=== PATIENT | female | born 1980 | race Caucasian/White ===

== ENCOUNTER → 2017-01-30 | Outpatient (CLI) | payer OTHER ==
[~2017-01-30] MED LIST: AZIT250T PO
== END | disposition home or self-care (01) ==
LOC: C.LABBFT 11:05
PROVIDERS: ATTEND Nurse Practitioner
DX: R39.9 Unspecified symptoms and signs involving the genitourinary system (principal)

== ENCOUNTER → 2017-03-26 | Outpatient (CLI) | payer OTHER ==
[2017-03-29 15:32] LABS: NICOTINE URINE 326 ng/mL
== END | disposition home or self-care (01) ==
LOC: C.LABBFT 08:12
PROVIDERS: ATTEND Nurse Practitioner
DX: Z00.00 Encounter for general adult medical examination without abnormal findings (principal); Z87.891 Personal history of nicotine dependence

== ENCOUNTER 2024-10-09 09:09 | Observation (INO) ==
[2024-10-09 10:24] LABS: Basophils # (auto) 0.08 K/uL (0.00-0.20); Eosinophils % (auto) 4.8 %; Hematocrit (blood only) 41.9 % (37.0-47.0); Immature Granulocytes # (auto) 0.04 K/uL (0.01-0.20); Immature Granulocytes % (auto) 0.5 %; Lymphocytes % (auto) 12.1 %; Mean Corpuscular Hemoglobin 29.7 pg (25.0-34.0); Mean Corpuscular Hgb Conc 33.4 g/dL (32.0-36.0); Mean Platelet Volume 11.6 fL (9.4-12.4); Monocytes % (auto) 9.7 %; Neutrophils # (auto) 5.97 K/uL (1.40-6.50); Neutrophils % (auto) 71.9 %; Platelet Count 229 K/uL (130-400); RDW Coefficient of Variation 12.9 % (11.5-14.5); RDW Standard Deviation 42.1 fL (36.4-46.3); Red Blood Count 4.71 M/uL (4.20-5.40); White Blood Count 8.29 K/ul (4.8-10.8)
[2024-10-09 10:43] LABS: Albumin Level 4.7 gm/dl (3.4-5.0); Anion Gap 5 (3-11); Bilirubin,Total 0.3 mg/dl (0.2-1.0); Calcium 9.2 mg/dl (8.6-10.3); Carbon Dioxide 29 mmol/L (21-32); Chloride 103 mmol/L (98-107); Potassium 3.4 mmol/L (3.5-5.1); Sodium 137 mmol/L (136-145)
[2024-10-09 10:49] LABS: Alanine Aminotransferase 13 U/L (7-52); Albumin Globulin Ratio 1.7 (0.9-2); Alkaline Phosphatase 47 U/L (34-104); Aspartate Aminotransferase 20 U/L (13-39); BUN Creatinine Ratio 22.1 (10-20); Blood Urea Nitrogen 17 mg/dl (6-23); C Reactive Protein < 0.50 mg/dl (0-0.5); Creatinine Clr Calc Pharmacy 91.5 ml/min; Globulin 2.7 gm/dl (2.5-4.0); Glucose 77 mg/dl (70-99(Fasting)); Total Protein 7.4 gm/dl (6.0-8.3)
[2024-10-09] MEDS: OPTIRAY 320 100ml IV ONE (11:10)
--- NOTE | 2024-10-09 11:29 | CT Scan Report ---
CT OF THE HEAD WITHOUT CONTRAST CLINICAL HISTORY: headache, sinus pressure COMPARISON STUDY: Head CT July 16, 2010. TECHNIQUE: Helical axial images of the head were obtained without IV contrast. Automated exposure con trol was utilized for the study. A dose lowering technique was utilized adhering to the principles o f ALARA. FINDINGS: No acute intracranial hemorrhage, midline shift or mass effect is present. The ventricular system is unremarkable. The basal cisterns are patent. No extra-axial collections are present. There are no findings to suggest acute dural sinus thrombosis or acute territorial infarct. There are no ca lvarial fractures. The right sphenoid sinus is opacified and likely contains inspissated secretions. There is a suspected mucous retention cyst within the left maxillary sinus. There is mild ethmoid sin us mucosal thickening. IMPRESSION: 1. No acute intracranial findings. 2. Opacified right sphenoid sinus which likely contains inspissated secretions. Left maxillary sinus mucous retention cyst and mild ethmoid sinus mucosal thickening. ACT 112: Negative or not required by law. Electronically signed by: Al Valencia M.D. 10/09/2024 11:28 AM
--- NOTE | 2024-10-09 11:56 | CT Scan Report ---
CT soft tissue neck w con CLINICAL HISTORY: sore throat, lymph node swelling, inflammation COMPARISON STUDY: None FINDINGS: There is spray artifact from metallic dental hardware. The parotid glands and submandibular glands appear mildly edematous with adjacent minimal inflammation. Thyroid gland is unremarkable. Th ere is moderate prominence of the tonsillar pillars bilaterally with mild narrowing of the aerodigest oleg tract at the level, suggesting tonsillitis. No peritonsillar abscess seen. There is swallowing ar tifact. Otherwise the visualized upper airway is widely patent and symmetric. There is mild cervical adenopathy with largest lymph node is a right submandibular node measuring 1.6 cm greatest dimension. There is complete opacification of the right maxillary sinus with occlusion of the right maxillary a ntrum and prominent mucosal thickening at the left maxillary sinus. No mastoid effusion. There is deg enerative disc disease at C5-6. IMPRESSION: 1. Findings suggestive of tonsillitis without peritonsillar abscess. 2. Mild edema/inflammation at the parotid and submandibular glands and mild cervical adenopathy. Thes e findings could be reactive due to tonsillitis, can also be seen in the setting of viral infection a nd Sjogren's syndrome. 3. Chronic maxillary sinusitis. ACT 112: Negative or not required by law. Electronically signed by: Graeme Hood M.D. 10/09/2024 11:53 AM
--- NOTE | 2024-10-09 12:24 | Emergency Department Note ---
ED Provider Note History of Present Illness Chief Complaint: Swelling/Edema to Extremity Stated Complaint: FACIAL SWELLING Time Seen by Provider: 10/09/24 10:16 Source: patient Mode of arrival: ambulatory Limitations: no limitations Patient is a 44-year-old female who presents to the emergency department for continued facial and neck swelling. Patient was seen here in the ED 2 days ago by myself for what she suspected was an allergic reaction. Home Medications Medication Instructions Recorded Confirmed Type multivitamin with minerals 1 tab PO DAILY 09/02/20 10/09/24 History (Hair,Skin and Nails tablet) valacyclovir 1 gram tablet 2,000 mg (2 x 1 gram) PO BID PRN 04/18/23 10/09/24 Rx oral ulcer 1 day #30 tabs epinephrine 0.3 mg/0.3 mL 0.3 mg (0.3 mL) IM Q4H PRN 10/07/24 10/09/24 Rx injection, auto-injector (EpiPen) anaphylaxis #2 ea amoxicillin 875 mg-potassium 1 tab PO BID 7 days #14 tabs 10/09/24 Rx clavulanate 125 mg tablet Allergies Allergy/AdvReac Type Severity Reaction Status Date / Time mold Allergy Intermediate rash Verified 10/08/24 14:00 house dust mite Allergy Mild nasal Verified 10/08/24 14:00 drainage, watering eye pollen extracts Allergy Mild nasal Verified 10/08/24 14:00 drainage, watering eyes cat dander AdvReac Unknown Verified 10/08/24 14:00 cats Allergy Unknown Uncoded 10/08/24 14:00 Past Med/Surg History Problem List Lorraine Dobson infection Influenza A Acute tonsillitis (Acute) Sinusitis, acute (Acute) Lymphadenopathy Allergic reaction (Acute) Tobacco use (Chronic) Allergic rhinitis (Acute) Medical History Bilirubinuria Urine discoloration Oral ulcer ASCUS of cervix with negative high risk HPV (08/2022) per [facility] repeat 09/16 Abnormal uterine bleeding (AUB) Weight gain Fatigue Impaired fasting glucose Overweight (BMI 25.0-29.9) Volvulus of colon Hyperlipidemia GERD (gastroesophageal reflux disease) COVID-19 x 2019, 2020 Irregular periods Daytime hypersomnolence Asthma Surgical History H/O right hemicolectomy (07/2014) [facility], Dr. Santos, performed for cecal volvulus S/P appendectomy Hx of cholecystectomy H/O abdominal surgery 11 inches of bowel removed H/O laparoscopy infertility w/u - dx with endometriosis History of hysteroscopy Family History Aunt Breast cancer Father COPD (chronic obstructive pulmonary disease) Other Heart disease Lung disease Denies family history of Ovarian cancer Prostate cancer Colorectal cancer Social History Smoking Status: Former smoker Tobacco Type: E-cigarettes / Vaping Age Started Using Tobacco: 16; Age Quit Using Tobacco: 39; packs per day: 0; Second Hand Exposure: No; Do You Dip or Chew Tobacco: No; Tobacco Cessation Education Requested by Patient: No Hx Alcohol Use: Yes Alcohol type: beer and wine Hx Substance Use: No Preferred Language: Telugu Communication Ability: Effective Visual Impairment: No Limitations Hearing Ability: Normal Lim[employer]ine [employer]ste[employer] Required: No Beliefs That Will Affect Care: None marital status: Single Current Living Situation: Family current occupational status: employed current occupation: [employer] How many Children do You have: 3 Other Information That Helps Us Care for You: No Feels Safe at Home: Yes Safety Concerns: Feels Safe At This Time Childhood Exposure to Second-Hand Smoke: Yes Diet: regular caffeine: Yes during the past year weight has: remained stable Dental Care, Regularly: Yes Physical Activity Frequency: 5-6 Times per Week Seatbelt Use: always Sunscreen Use: Yes Assistive Devices: Glasses Physical Exam Vital Signs Vital Signs - 24 hr 10/09/24 19:50 10/09/24 20:00 10/09/24 20:40 Temperature Temperature Source Pulse Rate 73 Pulse Rate [Right Finger] 76 60 Respiratory Rate 18 16 18 Respiratory Effort / Characteristics Non-Labored Spontaneous Non-Labored Respiratory Depth Respiratory Pattern Blood Pressure 98/65 L Blood Pressure [Left Arm] 112/77 122/72 Blood Pressure Mean [Left Arm] 88 88 Blood Pressure Position [Left Arm] Pulse Oximetry 96 96 96 Oxygen Delivery Method Room Air Room Air Room Air EWS Level of Consciousness - Last Result EWS Temperature - Last Result EWS Respiratory Rate - Last Result EWS Oxygen Saturation - Last Result EWS Oxygen in Use - Last Result EWS Score EWS Clinical Risk 10/09/24 21:05 10/10/24 01:07 10/10/24 08:27 Temperature 36.4 C L 36.7 C Temperature Source Oral Oral Pulse Rate Pulse Rate [Right Finger] 65 64 Respiratory Rate 16 16 Respiratory Effort / Characteristics Non-Labored Spontaneous Respiratory Depth Normal Normal Respiratory Pattern Regular Blood Pressure Blood Pressure [Left Arm] 102/67 112/74 Blood Pressure Mean [Left Arm] 78 86 Blood Pressure Position [Left Arm] Semi-fowlers Semi-fowlers Pulse Oximetry 96 96 Oxygen Delivery Method Room Air Room Air EWS Level of Consciousness - Last Result Spontaneously Alert EWS Temperature - Last Result 36.4 EWS Respiratory Rate - Last Result 16 EWS Oxygen Saturation - Last Result 96 EWS Oxygen in Use - Last Result No EWS Score 1 EWS Clinical Risk Low Risk 10/10/24 10:04 Temperature Temperature Source Pulse Rate Pulse Rate [Right Finger] Respiratory Rate Respiratory Effort / Characteristics Respiratory Depth Respiratory Pattern Blood Pressure Blood Pressure [Left Arm] Blood Pressure Mean [Left Arm] Blood Pressure Position [Left Arm] Pulse Oximetry Oxygen Delivery Method EWS Level of Consciousness - Last Result Spontaneously Alert EWS Temperature - Last Result 36.7 EWS Respiratory Rate - Last Result 16 EWS Oxygen Saturation - Last Result 96 EWS Oxygen in Use - Last Result No EWS Score 0 EWS Clinical Risk Low Risk VITAL SIGNS - Vital signs and nursing notes were reviewed. GENERAL -44-year-old female appearing their stated age, who is in no acute distress. Communicates well with provider and answers questions appropriately. Patient's is at bedside. HEAD - Normocephalic, Atraumatic. No Arriola's Sign or Raccoon's Eyes. No depressed skull fractures palpable. Patient has swelling noted to her face, her bilateral eyelids are puffy as well as swelling around her chin and neck. EYES - PERRL with EOMI bilaterally. Sclera anicteric. Conjunctiva pink and moist with no injection noted. EARS - No deformities of external structures noted on gross examination bilaterally. NOSE - Midline and without cyanosis. No epistaxis or purulent drainage noted. MOUTH/OROPHARYNX - Without perioral cyanosis. Buccal mucosa pink and moist and without leukoplakia. Patient's airway is patent, no noted erythema or edema within the airway. NECK - Neck with FROM. Moderate lymphadenopathy noted. LUNGS - Chest wall symmetric without accessory muscle use, intercostals retractions, or central cyanosis. Normal vesicular breath sounds CTA B/L. No wheezes, rales, or rhonchi appreciated. CARDIAC - RRR with S1/S2. No murmur, rubs, or gallops appreciated. EXTREMITIES - No edema present. +5/5 strength noted in UE/LE bilaterally. NEUROLOGIC -Sensory intact to light touch throughout. PSYCH - A&Ox3 and cooperates fully with examiner. Pt is very pleasant and interacts well with examiner Course Administered Medications Amoxicillin/Clavulanate Potassium (Amoxicillin/Clavulanate 875 Mg Tab) 1 tab PO BIDM [facility]; Protocol Stop: 10/17/24 16:59 Last Admin: 10/10/24 17:36 Dose: 1 tab Documented By: ANGE Cetirizine HCl (Cetirizine Hcl 10 Mg Tablet) 10 mg PO QAM [facility] Stop: 11/09/24 08:59 Last Admin: 10/10/24 08:43 Dose: 10 mg Documented By: ANGE Methylprednisolone 40 mg/ (Syringe) 0.64 mls @ 1.5 mls/min IV Q8H NICOLE Stop: 11/09/24 09:59 Last Admin: 10/10/24 17:36 Dose: 1.5 mls/min Documented By: Admin: 10/10/24 10:41 Dose: 1.5 mls/min Documented By: ANGE Oseltamivir Phosphate (Oseltamivir Phosphate 75 Mg Cap) 75 mg PO BID NICOLE Stop: 10/14/24 20:59 Last Admin: 10/10/24 08:43 Dose: 75 mg Documented By: Admin: 10/09/24 21:59 Dose: 75 mg Documented By: RICHIE Discontinued Medications Amoxicillin/Clavulanate Potassium (Amoxicillin/Clavulanate Susp 400/57 Mg 5 Ml Btl) 880 mg PO BIDM [facility]; Protocol Stop: 10/19/24 17:14 Last Admin: 10/10/24 10:41 Dose: 880 mg Documented By: Admin: 10/09/24 18:01 Dose: 880 mg Documented By: BREANNA Cetirizine HCl (Cetirizine Hcl 10 Mg Tablet) 10 mg PO NOW ONE Stop: 10/09/24 17:54 Last Admin: 10/09/24 21:59 Dose: 10 mg Documented By: RICHIE Dexamethasone Sodium Phosphate (DexamethasonePf 10 Mg/Ml Vial) 10 mg IM NOW ONE Stop: 10/09/24 14:37 Last Admin: 10/09/24 14:56 Dose: Not Given Documented By: BREANNA Diphenhydramine HCl (Diphenhydramine 50 Mg/Ml Vial) 25 mg IV NOW STA Stop: 10/09/24 14:37 Last Admin: 10/09/24 14:49 Dose: 25 mg Documented By: BREANNA Diphenhydramine HCl (Diphenhydramine 50 Mg/Ml Vial) 50 mg IV NOW STA Stop: 10/09/24 17:42 Last Admin: 10/09/24 18:03 Dose: 50 mg Documented By: BREANNA Famotidine (Famotidine 20mg/5ml Iv Push) Confirm Administered Dose 20 mg IV .STK-MED ONE Stop: 10/09/24 14:51 Last Admin: 10/09/24 15:06 Dose: Not Given Documented By: BREANNA Ceftriaxone Sodium (Rocephin) 2,000 mg in 50 mls @ 100 mls/hr IV NOW STA Stop: 10/09/24 13:34 Last Infusion: 10/09/24 14:07 Dose: Infused Documented By: Admin: 10/09/24 13:09 Dose: 100 mls/hr Documented By: BREANNA Famotidine (Pepcid 20mg Iv Push) 20 mg in 5 mls @ 2.5 mls/min IV NOW STA Stop: 10/09/24 14:48 Last Admin: 10/09/24 14:54 Dose: 2.5 mls/min Documented By: BREANNA Potassium Chloride/Sodium Chloride (Normal Saline W/20 Meq Kcl) 20 meq in 1,000 mls @ 100 mls/hr IV .Q10H NICOLE Stop: 10/10/24 07:59 Last Infusion: 10/10/24 14:14 Dose: Infused Documented By: Admin: 10/10/24 04:18 Dose: 100 mls/hr Documented By: Infusion: 10/10/24 04:03 Dose: Infused Documented By: Admin: 10/09/24 18:03 Dose: 100 mls/hr Documented By: BREANNA Sodium Chloride (Nss) 500 mls @ 999 mls/hr IV .Q31M ONE Stop: 10/09/24 17:30 Last Infusion: 10/09/24 19:43 Dose: Infused Documented By: Admin: 10/09/24 18:17 Dose: 999 mls/hr Documented By: BREANNA Ioversol (Optiray 320 100ml) 94 ml IV ONCE ONE Stop: 10/09/24 11:11 Last Admin: 10/09/24 11:10 Dose: 94 ml Documented By: ALYSHA Methylprednisolone (Methylprednisolone 125 Mg/2 Ml Vial) Confirm Administered Dose 125 mg .ROUTE .STK-MED ONE Stop: 10/09/24 14:44 Last Admin: 10/09/24 15:06 Dose: Not Given Documented By: BREANNA Methylprednisolone (Methylprednisolone 125 Mg/2 Ml Vial) 125 mg IV NOW STA Stop: 10/09/24 14:48 Last Admin: 10/09/24 14:54 Dose: 125 mg Documented By: BREANNA Oseltamivir Phosphate (Oseltamivir Phosphate 6 Mg/Ml Susp) 75 mg PO NOW STA Stop: 10/09/24 16:56 Last Admin: 10/09/24 18:04 Dose: 75 mg Documented By: BREANNA Potassium Chloride (Potassium Chloride Crtab 20 Meq Tabcr) 20 meq PO NOW STA Stop: 10/09/24 16:51 Last Admin: 10/09/24 18:02 Dose: 20 meq Documented By: BREANNA Medical Decision Making Differential Diagnosis Allergic reaction, angioedema, viral reaction, cellulitis, among others Medical Records Attestation: I reviewed the patient's medical records. Home Medications was personally reviewed by me Laboratory Data Attestation: I reviewed the patient's lab results. 10/10/24 06:30 10/10/24 06:30 Lab Results 10/09/24 10/09/24 10/09/24 Range/Units 09:45 15:10 18:32 WBC 8.29 (4.8-10.8) K/ul RBC 4.71 (4.20-5.40) M/uL Hgb 14.0 (12.0-16.0) g/dl Hct 41.9 (37.0-47.0) % MCV 89.0 (80.0-100.0) fL MCH 29.7 (25.0-34.0) pg MCHC 33.4 (32.0-36.0) g/dL RDW Std Deviation 42.1 (36.4-46.3) fL RDW Coeff of Trae 12.9 (11.5-14.5) % Plt Count 229 (130-400) K/uL MPV 11.6 (9.4-12.4) fL Immature Gran % (Auto) 0.5 % Neut % (Auto) 71.9 % Lymph % (Auto) 12.1 % Victoria % (Auto) 9.7 % Eos % (Auto) 4.8 % Baso % (Auto) 1.0 % Neut # (Auto) 5.97 (1.40-6.50) K/uL Lymph # (Auto) 1.00 L (1.20-3.40) K/uL Victoria # (Auto) 0.80 H (0.11-0.59) K/uL Eos # (Auto) 0.40 (0.00-0.50) K/uL Baso # (Auto) 0.08 (0.00-0.20) K/uL Immature Gran # (Auto) 0.04 (0.01-0.20) K/uL ESR 12 (0-20) mm/hr PT (9.0-12.0) Seconds INR (0.9-1.1) Sodium 137 (136-145) mmol/L Potassium 3.4 L (3.5-5.1) mmol/L Chloride 103 (98-107) mmol/L Carbon Dioxide 29 (21-32) mmol/L Anion Gap 5 (3-11) BUN 17 (6-23) mg/dl Creatinine 0.77 (0.6-1.2) mg/dl Est Cr Clr Drug Dosing 91.5 ml/min eGFR 96.88 BUN/Creatinine Ratio 22.1 H (10-20) Glucose 77 (70-99(Fasting)) mg/dl Calcium 9.2 (8.6-10.3) mg/dl Magnesium (1.7-2.4) mg/dl Total Bilirubin 0.3 (0.2-1.0) mg/dl AST 20 (13-39) U/L ALT 13 (7-52) U/L Alkaline Phosphatase 47 (34-104) U/L C-Reactive Protein < 0.50 (0-0.5) mg/dl Total Protein 7.4 (6.0-8.3) gm/dl Albumin 4.7 (3.4-5.0) gm/dl Globulin 2.7 (2.5-4.0) gm/dl Albumin/Globulin Ratio 1.7 (0.9-2) Adenovirus (PCR) Not Detected (NotDetected) B. pertussis DNA (PCR) Not Detected (NotDetected) B.parapertussis DNA PCR Not Detected (NotDetected) C. pneumoniae DNA (PCR) Not Detected (NotDetected) Coronavirus OC43 (PCR) Not Detected (NotDetected) Coronavirus HKU1 (PCR) Not Detected (NotDetected) Coronavirus 229E (PCR) Not Detected (NotDetected) SARS-CoV-2 (PCR) Not Detected (NotDetected) Coronavirus NL63 (PCR) Not Detected (NotDetected) EBV Capsid Ag IgG Ab Positive EBV Caps Ag IgG Sig Str > 750.0 (< 18.0) U/mL EBV Capsid Ag IgM Ab Negative EBV Caps Ag IgM Sig Str 11.7 (< 36.0) U/mL EBV Early Antigen IgG Positive A (Negative) EBV EA Signal Strength 79.8 (< 9.0) U/mL EBV Nuclear Antigen Ab Positive EBV Nucl Ag IgG Sig Str 374.0 (< 18.0) U/mL EBV Interpretation See Comment Monoscreen Negative (Negative) Human Metapneumovir PCR Not Detected (NotDetected) Influenza A (H3) PCR DETECTED A (NotDetected) Influenza Type B (PCR) Not Detected (NotDetected) M. pneumoniae (PCR) Not Detected (NotDetected) Parainfluenza 1 (PCR) Not Detected (NotDetected) Parainfluenza 2 (PCR) Not Detected (NotDetected) Parainfluenza 3 (PCR) Not Detected (NotDetected) Parainfluenza 4 (PCR) Not Detected (NotDetected) RSV (PCR) Not Detected (NotDetected) Entero/Rhino (PCR) Not Detected (NotDetected) Group A Strep (PCR) NOT DETECTED (NotDetected) 10/10/24 Range/Units 06:30 WBC 7.07 (4.8-10.8) K/ul RBC 4.33 (4.20-5.40) M/uL Hgb 13.0 (12.0-16.0) g/dl Hct 38.4 (37.0-47.0) % MCV 88.7 (80.0-100.0) fL MCH 30.0 (25.0-34.0) pg MCHC 33.9 (32.0-36.0) g/dL RDW Std Deviation 42.3 (36.4-46.3) fL RDW Coeff of Trae 12.8 (11.5-14.5) % Plt Count 211 (130-400) K/uL MPV 11.6 (9.4-12.4) fL Immature Gran % (Auto) 0.4 % Neut % (Auto) 79.0 % Lymph % (Auto) 11.5 % Victoria % (Auto) 8.9 % Eos % (Auto) 0.1 % Baso % (Auto) 0.1 % Neut # (Auto) 5.58 (1.40-6.50) K/uL Lymph # (Auto) 0.81 L (1.20-3.40) K/uL Victoria # (Auto) 0.63 H (0.11-0.59) K/uL Eos # (Auto) 0.01 (0.00-0.50) K/uL Baso # (Auto) 0.01 (0.00-0.20) K/uL Immature Gran # (Auto) 0.03 (0.01-0.20) K/uL ESR (0-20) mm/hr PT 10.9 (9.0-12.0) Seconds INR 1.0 (0.9-1.1) Sodium 137 (136-145) mmol/L Potassium 4.2 D (3.5-5.1) mmol/L Chloride 108 H (98-107) mmol/L Carbon Dioxide 25 (21-32) mmol/L Anion Gap 4 (3-11) BUN 9 (6-23) mg/dl Creatinine 0.62 (0.6-1.2) mg/dl Est Cr Clr Drug Dosing 109.3 ml/min eGFR 111.85 BUN/Creatinine Ratio 14.5 (10-20) Glucose 79 (70-99(Fasting)) mg/dl Calcium 8.3 L (8.6-10.3) mg/dl Magnesium 1.9 (1.7-2.4) mg/dl Total Bilirubin 0.3 (0.2-1.0) mg/dl AST 15 (13-39) U/L ALT 11 (7-52) U/L Alkaline Phosphatase 47 (34-104) U/L C-Reactive Protein (0-0.5) mg/dl Total Protein 6.4 (6.0-8.3) gm/dl Albumin 4.0 (3.4-5.0) gm/dl Globulin 2.4 L (2.5-4.0) gm/dl Albumin/Globulin Ratio 1.7 (0.9-2) Adenovirus (PCR) (NotDetected) B. pertussis DNA (PCR) (NotDetected) B.parapertussis DNA PCR (NotDetected) C. pneumoniae DNA (PCR) (NotDetected) Coronavirus OC43 (PCR) (NotDetected) Coronavirus HKU1 (PCR) (NotDetected) Coronavirus 229E (PCR) (NotDetected) SARS-CoV-2 (PCR) (NotDetected) Coronavirus NL63 (PCR) (NotDetected) EBV Capsid Ag IgG Ab EBV Caps Ag IgG Sig Str (< 18.0) U/mL EBV Capsid Ag IgM Ab EBV Caps Ag IgM Sig Str (< 36.0) U/mL EBV Early Antigen IgG (Negative) EBV EA Signal Strength (< 9.0) U/mL EBV Nuclear Antigen Ab EBV Nucl Ag IgG Sig Str (< 18.0) U/mL EBV Interpretation Monoscreen (Negative) Human Metapneumovir PCR (NotDetected) Influenza A (H3) PCR (NotDetected) Influenza Type B (PCR) (NotDetected) M. pneumoniae (PCR) (NotDetected) Parainfluenza 1 (PCR) (NotDetected) Parainfluenza 2 (PCR) (NotDetected) Parainfluenza 3 (PCR) (NotDetected) Parainfluenza 4 (PCR) (NotDetected) RSV (PCR) (NotDetected) Entero/Rhino (PCR) (NotDetected) Group A Strep (PCR) (NotDetected) Imaging Data Radiologist's Impression: Head CT 10/09/24 10:27 CT OF THE HEAD WITHOUT CONTRAST CLINICAL HISTORY: headache, sinus pressure COMPARISON STUDY: Head CT July 16, 2010. TECHNIQUE: Helical axial images of the head were obtained without IV contrast. Automated exposure control was utilized for the study. A dose lowering technique was utilized adhering to the principles of ALARA. FINDINGS: No acute intracranial hemorrhage, midline shift or mass effect is present. The ventricular system is unremarkable. The basal cisterns are patent. No extra-axial collections are present. There are no findings to suggest acute dural sinus thrombosis or acute territorial infarct. There are no calvarial fractures. The right sphenoid sinus is opacified and likely contains inspissated secretions. There is a suspected mucous retention cyst within the left maxillary sinus. There is mild ethmoid sinus mucosal thickening. IMPRESSION: 1. No acute intracranial findings. 2. Opacified right sphenoid sinus which likely contains inspissated secretions. Left maxillary sinus mucous retention cyst and mild ethmoid sinus mucosal thickening. ACT 112: Negative or not required by law. Electronically signed by: Al Valencia M.D. 10/09/2024 11:28 AM Soft Tissue Neck CT 10/09/24 10:27 CT soft tissue neck w con CLINICAL HISTORY: sore throat, lymph node swelling, inflammation COMPARISON STUDY: None FINDINGS: There is spray artifact from metallic dental hardware. The parotid glands and submandibular glands appear mildly edematous with adjacent minimal inflammation. Thyroid gland is unremarkable. There is moderate prominence of the tonsillar pillars bilaterally with mild narrowing of the aerodigestive tract at the level, suggesting tonsillitis. No peritonsillar abscess seen. There is swallowing artifact. Otherwise the visualized upper airway is widely patent and symmetric. There is mild cervical adenopathy with largest lymph node is a right submandibular node measuring 1.6 cm greatest dimension. There is complete opacification of the right maxillary sinus with occlusion of the right maxillary antrum and prominent mucosal thickening at the left maxillary sinus. No mastoid effusion. There is degenerative disc disease at C5-6. IMPRESSION: 1. Findings suggestive of tonsillitis without peritonsillar abscess. 2. Mild edema/inflammation at the parotid and submandibular glands and mild cervical adenopathy. These findings could be reactive due to tonsillitis, can also be seen in the setting of viral infection and Sjogren's syndrome. 3. Chronic maxillary sinusitis. ACT 112: Negative or not required by law. Electronically signed by: Graeme Hood M.D. 10/09/2024 11:53 AM MDM Narrative Patient is a 44-year-old female who presents to the emergency department for continued facial and neck swelling. Patient was seen here in the ED 2 days ago by myself for what she suspected was an allergic reaction. Patient was evaluated by myself and findings were noted in the physical exam above. Patient was ordered IV placement, lab work, CT of the head and CT of the soft tissues of the neck. Patient was also ordered upper respiratory viral panel. Patient's lab work resulted with a normal white blood cell count of 8.29. Patient had no indication of anemia with a hemoglobin of 14.0 and 41.9. Patient also had no electrolyte imbalance noted in her lab work. Patient also had a C- reactive protein ordered which was normal at less than 0.50. I ordered a ESR on this patient as well which resulted normal at 12. Patient had a strep swab completed which was negative for strep. Patient's upper respiratory viral panel resulted positive for influenza. Patient had a CT of the head that was completed and interpreted by radiology to show opacified right sphenoid sinus which likely contains inspissated secretions. The patient's left maxillary sinus mucous retention cyst and mild ethmoid sinus mucosal thickening was also noted on CT. Patient CT of the soft tissues of the neck also showed some findings that were suggestive of tonsillitis without any peritonsillar abscess noted. There is some mild edema and inflammation at the parotid and submandibular glands. Patient had some mild cervical adenopathy as well. I discussed all these findings with the patient and her at bedside. Because of the patient's lymphadenopathy and appearance of chronic sinusitis and tonsillitis I discussed with the patient treating her with antibiotics, starting with a dose of IV antibiotics here in the emergency department and discharged home with antibiotics as well. Patient was given an IV dose of ceftriaxone in the emergency department. After administration of the ceftriaxone the patient stated that she was experiencing increased sensation of throat swelling and was having some difficulty breathing. Patient stated that she felt like she was get a pass out. Patient was at that time administered a dose of Benadryl, steroids, and famotidine. I discussed with the patient that we could continue to monitor here in the emergency department or speak to the hospitalist group for admission for further evaluation and management. I suggested that the patient stay in the hospital for further evaluation and management as she has been experiencing these same symptoms for several days now as this is her second visit to the emergency department for the same symptoms that have not improved. Patient verbalized understanding was agreeable to the plan for admission for further evaluation and management. I reached out to [facility] regarding this patient and give them a full report of the patient's chief complaint, current status, and results of any imaging and lab work. [facility] agreed to accept this patient for admission under their service. Please refer to [facility]'s documentation for further evaluation and management of this patient. Impression Sinusitis, acute, Acute tonsillitis Discharge Plan Visit Data Chief Complaint: Swelling/Edema to Extremity Stated Complaint: FACIAL SWELLING ED Provider: [facility] ED Midlevel Provider: Taylor Lord Discharge Problem: Sinusitis, acute, Acute tonsillitis Patient Disposition: Home - Self-Care Discharge Instructions Interventions: ED Discharge Assessment Last Done: 10/09/24 20:40 Discharge Problem: Sinusitis, acute Qualifiers: Sinusitis location: unspecified location Recurrence: recurrent Qualified Code(s): J01.91 - Acute recurrent sinusitis, unspecified Acute tonsillitis Qualifiers: Pharyngitis/tonsillitis etiology: unspecified etiology Qualified Code(s): J 03.90 - Acute tonsillitis, unspecified
[2024-10-09] MEDS: cefTRIAXone SODIUM 2,000 MG/50 ML BAG IV STA (13:09)
[2024-10-09] MEDS: diphenhydrAMINE 50 MG/ML VIAL IV STA ×2 (14:49→18:03)
[2024-10-09] MEDS: FAMOTIDINE 20MG IV PUSH 20 MG/5 ML SYR IV STA (14:54)
[2024-10-09] MEDS: methylPREDNISolone 125 MG/2 ML VIAL IV STA (14:54)
[2024-10-09] MEDS: dexAMETHasone**PF** 10 MG/ML VIAL IM ONE (14:56)
[2024-10-09] MEDS: FAMOTIDINE 20MG/5ML IV PUSH IV ONE (15:06)
[2024-10-09] MEDS: methylPREDNISolone 125 MG/2 ML VIAL ONE (15:06)
[2024-10-09 16:08] LABS: Adenovirus PCR Not Detected (NotDetected); Bordetella parapertussis PCR Not Detected (NotDetected); Bordetella pertussis PCR Not Detected (NotDetected); Chlamydia pneumoniae PCR Not Detected (NotDetected); Coronavirus 229E PCR Not Detected (NotDetected); Coronavirus CoV-2 (COVID19)PCR Not Detected (NotDetected); Coronavirus HKU1 PCR Not Detected (NotDetected); Coronavirus NL63 PCR Not Detected (NotDetected); Coronavirus OC43PCR Not Detected (NotDetected); Human Metapneumovirus PCR Not Detected (NotDetected); Influenza A (H3) PCR DETECTED (NotDetected); Influenza B PCR Not Detected (NotDetected); Mycoplasma pneumoniae PCR Not Detected (NotDetected); Parainfluenza Virus 1 PCR Not Detected (NotDetected); Parainfluenza Virus 2 PCR Not Detected (NotDetected); Parainfluenza Virus 3 PCR Not Detected (NotDetected); Parainfluenza Virus 4 PCR Not Detected (NotDetected); Respiratory Syncytial VirusPCR Not Detected (NotDetected); Rhinovirus/Enterovirus PCR Not Detected (NotDetected)
[2024-10-09] MEDS ORDERED: MAGNESIUM HYDROXIDE SUSP 30 ML UDC PO PRN (16:52)
[2024-10-09] MEDS ORDERED: POLYETHYLENE (MIRALAX) 17 GM PACK PO PRN (16:52)
[2024-10-09] MEDS ORDERED: MELATONIN 3 MG TAB PO PRN (16:52)
[2024-10-09] MEDS ORDERED: ACETAMINOPHEN 500 MG TAB PO PRN (16:52)
[2024-10-09] MEDS ORDERED: ONDANSETRON INJ 2 MG/ML 2 ML VIAL IV PRN (16:52)
[2024-10-09] MEDS ORDERED: IBUPROFEN 200 MG TAB PO PRN (16:55)
--- NOTE | 2024-10-09 16:59 | History & Physical Report ---
Date of Service October 09, 2024 Assessment & Plan (1) Influenza A: (2) Acute tonsillitis: (3) Lymphadenopathy: (4) Allergic reaction: Plan 44-year-old female with past medical history of cecal volvulus status post right hemicolectomy, allergies to mold, house dust mites, pollen, cat dander and cats and not on any medication at home presented to the ED originally on 10/07/2024 after being exposed to With facial swelling with neck swelling and was given IV Decadron, IV Benadryl and IV Pepcid with improvement and was sent home. Patient states that her symptoms recurred at home and then she went to follow-up with her primary care provider yesterday who diagnosed her with sinus infection and prescribed her Augmentin 875 mg p.o. twice daily, stop steroids and referred her to an operations intern and ENT specialist. Patient states that in spite of taking Augmentin she felt her neck glands were getting more swollen and hence decided to come to the ED. #Influenza A infection #Bilateral tonsillitis #Bilateral cervical lymphadenopathy #Bilateral enlargement of parotid and submandibular glands #Suspected allergic reaction Admit for observation Vital signs are stable, patient is saturating well on room air and not in any respiratory distress Start patient on Tamiflu 75 mg p.o. twice daily IV fluid hydration Throat culture sent from ED: Results pending Check Monospot Continue Augmentin Tylenol as needed plus ibuprofen as needed Cetirizine 10 mg p.o. daily Patient has already been referred to ENT and operations intern as outpatient If no improvement in 24 hours with glandular swelling, then will need ENT consult in a.m. #Hypokalemia Likely from poor oral intake Potassium replacement p.o. 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 Patient states that her symptoms recurred at home and then she went to follow-up with her primary care provider yesterday who diagnosed her with sinus infection and prescribed her Augmentin 875 mg p.o. twice daily, stop steroids and referred her to an operations intern and ENT specialist. Patient states that in spite of taking Augmentin she felt her neck glands were getting more swollen and hence decided to come to the ED. Patient had labs done in the ED which were remarkable for potassium of 3.4 with normal CRP, normal white count She had an EKG done which showed sinus rhythm at 62 bpm with no ischemic changes She had a viral panel sent which was positive for influenza A, group A strep was negative She had a CT neck with contrast showing findings suggestive of tonsillitis without peritonsillar abscess, mild edema/inflammation of the parotid and submandibular glands and mild cervical adenopathy which appear to be reactive due to tonsillitis with chronic maxillary sinusitis. Findings could be reactive due to tonsillitis or also can be seen in setting of viral infection and Sjogren syndrome. CT of the head showed no acute intracranial findings with opacified right sphenoid sinus which likely contains secretions, left maxillary sinus mucous retention cyst and mild ethmoid sinus mucosal thickening. Patient was in Pepcid 20 mg IV, Solu-Medrol 125 mg IV, Benadryl 25 mg IV and dexamethasone 10 mg IV along with ceftriaxone 2 g IV in the ED. Patient feels that her swelling in her neck got worse after IV ceftriaxone. She denies any fever, chills, nausea, vomiting, diarrhea, abdominal pain, chest pain, shortness of breath, difficulty swallowing. She is able to eat and drink. She feels her neck glands are swollen which are impacting her throat. She is also noticed her face is more swollen than usual with swelling around her eyes. She does report decreased appetite over the past 3 days with poor oral intake. She denies any sick contacts. She denies any nosebleeds, hemoptysis, cough, hematochezia or bright red blood per rectum. Patient states she is not on any home medications. She has been prescribed EpiPen but it is too expensive and expires very quickly and hence does not have any EpiPen available. She also has taken Tylenol and ibuprofen in the past without any issues Social history: Patient lives at home with her boyfriend August who is at the bedside. She is independent of ADLs. She is employed. She denies tobacco use and drinks alcohol socially only. She denies cannabis use and IV drug use Allergies Allergy/AdvReac Type Severity Reaction Status Date / Time mold Allergy Intermediate rash Verified 10/08/24 14:00 house dust mite Allergy Mild nasal Verified 10/08/24 14:00 drainage, watering eye pollen extracts Allergy Mild nasal Verified 10/08/24 14:00 drainage, watering eyes cat dander AdvReac Unknown Verified 10/08/24 14:00 cats Allergy Unknown Uncoded 10/08/24 14:00 Home Medications Medication Instructions Recorded Confirmed Type multivitamin with minerals 1 tab PO DAILY 09/02/20 10/09/24 History (Hair,Skin and Nails tablet) valacyclovir 1 gram tablet 2,000 mg (2 x 1 gram) PO BID PRN 04/18/23 10/09/24 Rx oral ulcer 1 day #30 tabs epinephrine 0.3 mg/0.3 mL 0.3 mg (0.3 mL) IM Q4H PRN 10/07/24 10/09/24 Rx injection, auto-injector (EpiPen) anaphylaxis #2 ea amoxicillin 875 mg-potassium 1 tab PO BID 7 days #14 tabs 10/09/24 Rx clavulanate 125 mg tablet Past Med/Surg History Problem List (Updated 10/09/24 @ 17:53 by Cas Montague MD) Influenza A Acute tonsillitis (Acute) Sinusitis, acute (Acute) Lymphadenopathy Allergic reaction (Acute) Tobacco use (Chronic) Allergic rhinitis (Acute) Medical History (Updated 10/09/24 @ 17:53 by Cas Montague MD) Bilirubinuria Urine discoloration Oral ulcer ASCUS of cervix with negative high risk HPV (08/2022) per [facility] repeat 09/16 Abnormal uterine bleeding (AUB) Weight gain Fatigue Impaired fasting glucose Overweight (BMI 25.0-29.9) Volvulus of colon Hyperlipidemia GERD (gastroesophageal reflux disease) COVID-19 x 2, 2019, 2020 Irregular periods Daytime hypersomnolence Asthma Surgical History H/O right hemicolectomy (07/2014) [facility], Dr. Santos, performed for cecal volvulus S/P appendectomy Hx of cholecystectomy H/O abdominal surgery 11 inches of bowel removed H/O laparoscopy infertility w/u - dx with endometriosis History of hysteroscopy Family History Aunt Breast cancer Father COPD (chronic obstructive pulmonary disease) Other Heart disease Lung disease Denies family history of Ovarian cancer Prostate cancer Colorectal cancer Social History Smoking Status: Never smoker Tobacco Type: Cigarettes Age Started Using Tobacco: 16; Age Quit Using Tobacco: 39; packs per day: 0; Second Hand Exposure: No; Do You Dip or Chew Tobacco: No; Hx Alcohol Use: Yes Hx Substance Use: No Preferred Language: [place] Communication Ability: Effective Visual Impairment: No Limitations Hearing Ability: Normal Environmental Engineering Assistant Required: No Beliefs That Will Affect Care: None marital status: Single Current Living Situation: Family current occupational status: employed current occupation: [employer] How many Children do You have: 3 Feels Safe at Home: Yes Childhood Exposure to Second-Hand Smoke: Yes Diet: regular caffeine: Yes during the past year weight has: remained stable Dental Care, Regularly: Yes Physical Activity Frequency: 5-6 Times per Week Seatbelt Use: always Sunscreen Use: Yes Assistive Devices: Contacts and Glasses Review of Systems Review of Systems: All 12 systems have been reviewed and are either negative or documented in HPI Physical Exam Physical Exam: General: No acute distress, no respiratory distress noted, not anxious appearing Psych: Awake and alert, oriented to place person and time HEENT: Anicteric sclera, dry oral mucosa, facial swelling noted, bilateral submandibular gland swelling noted with bilateral cervical lymphadenopathy. Airway is patent, mild erythema, no visual evidence of abscess CVS: Regular rate and rhythm Lungs: Bilateral air entry, no wheezing noted Abdomen: Soft, nontender, no rebound, no guarding Ext: No lower extremity edema, no calf tenderness Neuro: No focal motor deficits noted Results & Data Results & Data Vital Signs (Past 12 Hours) Vital Signs Temp Pulse Pulse Resp BP BP Pulse Ox 10/09/24 14:27 66 14 107/72 99 10/09/24 13:54 67 16 107/72 99 10/09/24 13:33 70 17 111/80 99 10/09/24 13:21 74 18 130/94 99 10/09/24 12:51 64 16 130/94 99 10/09/24 12:15 74 15 113/81 99 10/09/24 11:30 70 19 107/79 100 10/09/24 10:21 73 10/09/24 09:47 72 18 124/78 100 10/09/24 09:13 36.5 C 82 20 122/89 99 O2 Del Method 10/09/24 14:27 10/09/24 13:54 10/09/24 13:33 10/09/24 13:21 10/09/24 12:51 10/09/24 12:15 10/09/24 11:30 10/09/24 10:21 10/09/24 09:47 Room Air 10/09/24 09:13 Room Air Laboratory Results Laboratory Results - last 24 hr 10/09/24 10/09/24 09:45 15:10 WBC 8.29 RBC 4.71 Hgb 14.0 Hct 41.9 MCV 89.0 MCH 29.7 MCHC 33.4 RDW Std Deviation 42.1 RDW Coeff of Trae 12.9 Plt Count 229 MPV 11.6 Immature Gran % (Auto) 0.5 Neut % (Auto) 71.9 Lymph % (Auto) 12.1 Cooke % (Auto) 9.7 Eos % (Auto) 4.8 Baso % (Auto) 1.0 Neut # (Auto) 5.97 Lymph # (Auto) 1.00 L Cooke # (Auto) 0.80 H Eos # (Auto) 0.40 Baso # (Auto) 0.08 Immature Gran # (Auto) 0.04 ESR 12 Sodium 137 Potassium 3.4 L Chloride 103 Carbon Dioxide 29 Anion Gap 5 BUN 17 Creatinine 0.77 Est Cr Clr Drug Dosing 91.5 eGFR 96.88 BUN/Creatinine Ratio 22.1 H Glucose 77 Calcium 9.2 Total Bilirubin 0.3 AST 20 ALT 13 Alkaline Phosphatase 47 C-Reactive Protein < 0.50 Total Protein 7.4 Albumin 4.7 Globulin 2.7 Albumin/Globulin Ratio 1.7 Tryptase Pending Adenovirus (PCR) Not Detected B. pertussis DNA (PCR) Not Detected B.parapertussis DNA PCR Not Detected C. pneumoniae DNA (PCR) Not Detected Coronavirus OC43 (PCR) Not Detected Coronavirus HKU1 (PCR) Not Detected Coronavirus 229E (PCR) Not Detected SARS-CoV-2 (PCR) Not Detected Coronavirus NL63 (PCR) Not Detected Human Metapneumovir PCR Not Detected Influenza A (H3) PCR DETECTED A Influenza Type B (PCR) Not Detected M. pneumoniae (PCR) Not Detected Parainfluenza 1 (PCR) Not Detected Parainfluenza 2 (PCR) Not Detected Parainfluenza 3 (PCR) Not Detected Parainfluenza 4 (PCR) Not Detected RSV (PCR) Not Detected Entero/Rhino (PCR) Not Detected Group A Strep (PCR) NOT DETECTED Diagnostic Findings Head CT 10/09/24 10:27 CT OF THE HEAD WITHOUT CONTRAST CLINICAL HISTORY: headache, sinus pressure COMPARISON STUDY: Head CT July 16, 2010. TECHNIQUE: Helical axial images of the head were obtained without IV contrast. Automated exposure control was utilized for the study. A dose lowering technique was utilized adhering to the principles of ALARA. FINDINGS: No acute intracranial hemorrhage, midline shift or mass effect is present. The ventricular system is unremarkable. The basal cisterns are patent. No extra-axial collections are present. There are no findings to suggest acute dural sinus thrombosis or acute territorial infarct. There are no calvarial fractures. The right sphenoid sinus is opacified and likely contains inspissated secretions. There is a suspected mucous retention cyst within the left maxillary sinus. There is mild ethmoid sinus mucosal thickening. IMPRESSION: 1. No acute intracranial findings. 2. Opacified right sphenoid sinus which likely contains inspissated secretions. Left maxillary sinus mucous retention cyst and mild ethmoid sinus mucosal thickening. ACT 112: Negative or not required by law. Electronically signed by: Al Valencia M.D. 10/09/2024 11:28 AM Soft Tissue Neck CT 10/09/24 10:27 CT soft tissue neck w con CLINICAL HISTORY: sore throat, lymph node swelling, inflammation COMPARISON STUDY: None FINDINGS: There is spray artifact from metallic dental hardware. The parotid glands and submandibular glands appear mildly edematous with adjacent minimal inflammation. Thyroid gland is unremarkable. There is moderate prominence of the tonsillar pillars bilaterally with mild narrowing of the aerodigestive tract at the level, suggesting tonsillitis. No peritonsillar abscess seen. There is swallowing artifact. Otherwise the visualized upper airway is widely patent and symmetric. There is mild cervical adenopathy with largest lymph node is a right submandibular node measuring 1.6 cm greatest dimension. There is complete opacification of the right maxillary sinus with occlusion of the right maxillary antrum and prominent mucosal thickening at the left maxillary sinus. No mastoid effusion. There is degenerative disc disease at C5-6. IMPRESSION: 1. Findings suggestive of tonsillitis without peritonsillar abscess. 2. Mild edema/inflammation at the parotid and submandibular glands and mild cervical adenopathy. These findings could be reactive due to tonsillitis, can also be seen in the setting of viral infection and Sjogren's syndrome. 3. Chronic maxillary sinusitis. ACT 112: Negative or not required by law. Electronically signed by: Graeme Hood M.D. 10/09/2024 11:53 AM PG Care Time/CCT Total # of Minutes Spent Total Time Spent with Patient: Total time spent is greater than 50% in coordination of care (as documented) at patient's floor/unit and/or counseling patient: Coding Level of Care Code 17547 INT INP/OBS CARE 375MIN Diagnoses Influenza A J10.1 Acute tonsillitis J03.90 Pharyngitis/tonsillitis etiology: unspecified etiology Lymphadenopathy R59.1 Allergic reaction T78.40XA (2) Acute tonsillitis Pharyngitis/tonsillitis etiology: unspecified etiology Qualified Code(s): J03.90 - Acute tonsillitis, unspecified
[2024-10-09] MEDS: AMOXICILLIN/CLAVULANATE SUSP 400/57 MG 5 ML BTL PO SCH (18:01)
[2024-10-09] MEDS: POTASSIUM CHLORIDE CRTAB 20 MEQ TABCR PO STA (18:02)
[2024-10-09] MEDS: NSS + 20MEQ KCL 20 MEQ/1,000 ML BAG IV SCH (18:03)
[2024-10-09] MEDS: OSELTAMIVIR PHOSPHATE 6 MG/ML SUSP PO STA (18:04)
[2024-10-09] MEDS: SODIUM CHLORIDE 0.9% 500 ML IV ONE (18:17)
[2024-10-09 19:14] LABS: Monotest Negative (Negative)
[2024-10-09 19:56] LABS: EBV Nuclear Antigen IgG Ab Positive
[2024-10-09 19:57] LABS: EBV Early Antigen IgG Ab Positive (Negative); EBV Early Antigen IgG Quant 79.8 U/mL (< 9.0)
[2024-10-09 19:58] LABS: EBV IgG Quant > 750.0 U/mL (< 18.0); EBV IgM Quant 11.7 U/mL (< 36.0)
--- NOTE | 2024-10-09 20:36 | Electrocardiogram Report ---
Test Reason : Blood Pressure : */* mmHG Vent. Rate : 62 BPM Atrial Rate : 62 BPM P-R Int : 136 ms QRS Dur : 78 ms QT Int : 406 ms P-R-T Axes : 52 77 65 degrees QTcB Int : 412 ms Normal sinus rhythm Low voltage QRS Abnormal ECG When compared with ECG of 07-Oct-2024 07:31, No significant change was found Confirmed by Roosevelt Berg [id number] on 10/09/2024 8:36:13 PM Referred By: REFERRED SELF Confirmed By: Roosevelt Berg
[2024-10-09] MEDS: OSELTAMIVIR PHOSPHATE 75 MG CAP PO SCH (21:59)
[2024-10-09] MEDS: CETIRIZINE HCL 10 MG TABLET PO ONE (21:59)
[2024-10-10 07:10] LABS: Basophils # (auto) 0.01 K/uL (0.00-0.20); Basophils % (auto) 0.1 %; Eosinophils # (auto) 0.01 K/uL (0.00-0.50); Eosinophils % (auto) 0.1 %; Hematocrit (blood only) 38.4 % (37.0-47.0); Immature Granulocytes # (auto) 0.03 K/uL (0.01-0.20); Immature Granulocytes % (auto) 0.4 %; Lymphocytes # (auto) 0.81 K/uL (1.20-3.40); Lymphocytes % (auto) 11.5 %; Mean Corpuscular Hgb Conc 33.9 g/dL (32.0-36.0); Mean Corpuscular Volume 88.7 fL (80.0-100.0); Mean Platelet Volume 11.6 fL (9.4-12.4); Monocytes # (auto) 0.63 K/uL (0.11-0.59); Monocytes % (auto) 8.9 %; Neutrophils # (auto) 5.58 K/uL (1.40-6.50); Platelet Count 211 K/uL (130-400); RDW Coefficient of Variation 12.8 % (11.5-14.5); RDW Standard Deviation 42.3 fL (36.4-46.3); Red Blood Count 4.33 M/uL (4.20-5.40); White Blood Count 7.07 K/ul (4.8-10.8)
[2024-10-10 07:17] LABS: Prothrombin Time 10.9 Seconds (9.0-12.0)
[2024-10-10 08:12] LABS: Albumin Globulin Ratio 1.7 (0.9-2); BUN Creatinine Ratio 14.5 (10-20); Bilirubin,Total 0.3 mg/dl (0.2-1.0); Calcium 8.3 mg/dl (8.6-10.3); Creatinine Clr Calc Pharmacy 109.3 ml/min; Globulin 2.4 gm/dl (2.5-4.0); Magnesium 1.9 mg/dl (1.7-2.4); Potassium 4.2 mmol/L (3.5-5.1); Total Protein 6.4 gm/dl (6.0-8.3)
[2024-10-10] MEDS: CETIRIZINE HCL 10 MG TABLET PO SCH (08:43)
[2024-10-10] MEDS ORDERED: methylPREDNISolone 125 MG/2 ML VIAL IV SCH (09:30)
--- NOTE | 2024-10-10 10:39 | Hospitalist Progress Note ---
Date of Service October 10, 2024 Assessment & Plan (1) Influenza A: (2) Acute tonsillitis: (3) Lymphadenopathy: (4) Allergic reaction: (5) Lorraine Dobson infection: Plan 44-year-old female with past medical history of cecal volvulus status post right hemicolectomy, allergies to mold, house dust mites, pollen, cat dander and cats and not on any medication at home presented to the ED originally on 10/07/2024 after being exposed to With facial swelling with neck swelling and was given IV Decadron, IV Benadryl and IV Pepcid with improvement and was sent home. Patient states that her symptoms recurred at home and then she went to follow-up with her primary care provider yesterday who diagnosed her with sinus infection and prescribed her Augmentin 875 mg p.o. twice daily, stop steroids and referred her to an ios programmer and ENT specialist. Patient states that in spite of taking A ugmentin she felt her neck glands were getting more swollen and hence decided to come to the ED. #Influenza A infection #EBV #Bilateral tonsillitis #Bilateral cervical lymphadenopathy #Bilateral enlargement of parotid and submandibular glands #Suspected allergic reaction Vital signs are stable, patient is saturating well on room air and not in any respiratory distress Still having difficulty and pain swallowing Start patient on Tamiflu 75 mg p.o. twice daily, Solumedrol 40mg Q8hrs to help with swelling and inflammation IV fluid hydration Check Monospot Continue Augmentin Tylenol as needed plus ibuprofen as needed Cetirizine 10 mg p.o. daily Patient has already been referred to ENT and ios programmer as outpatient #Hypokalemia Likely from poor oral intake Potassium replacement p.o. 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 Physical Exam Physical Exam: The patient is awake, alert and oriented 3, well developed and well nourished, normocephalic and atraumatic, lying in bed and in no acute distress. HEENT--PERRL, EOMI, mucous membranes and oropharynx mildly dry Neck--supple. No JVD. No bruits. Thyroid normal, trachea midline, cervical adenopathy. Heart--normal S1 and S2. No murmurs, rubs or gallops. Lungs--clear bilaterally, no respiratory distress, no accessory muscle use. Abdomen--normal bowel sounds and soft. Extremities--no cyanosis or clubbing. No edema. Dermatologic--normal skin turgor, normal color, no abnormal lymph nodes, no rash. Neurologic--cranial nerves II through XII grossly intact. Rheumatologic--normal range of motion. Psychiatric--normal affect. Results & Data Results & Data Vital Signs (Past 12 Hours) Vital Signs Temp Pulse Resp BP Pulse Ox O2 Del Method 10/10/24 08:27 98.1 F 64 16 112/74 96 Room Air PG Care Time/CCT Total # of Minutes Spent Total Time Spent with Patient: Total time spent is greater than 50% in coordination of care (as documented) at patient's floor/unit and/or counseling patient: Coding Level of Care Code 44157 SUB INP/OBS CARE 2/35MIN Diagnoses Influenza A J10.1 Acute tonsillitis J03.90 Pharyngitis/tonsillitis etiology: unspecified etiology Lymphadenopathy R59.1 Allergic reaction T78.40XA Lorraine Dobsno infection B27.90 Time Spent (min) 35 (2) Acute tonsillitis Pharyngitis/tonsillitis etiology: unspecified etiology Qualified Code(s): J03.90 - Acute tonsillitis, unspecified
[2024-10-10] MEDS: methylPREDNISolone 40 MG in SYRINGE 0 ML IV SCH (10:41)
[2024-10-10] MEDS: AMOXICILLIN/CLAVULANATE 875 MG TAB PO SCH (17:36)
[2024-10-10] MEDS ORDERED: CALCIUM CARBONATE 500 MG CHEWABLE TAB PO PRN (20:29)
[2024-10-10] MEDS: PANTOprazole 40 MG TAB PO SCH (21:41)
[2024-10-11 08:03] VITALS: BP 110/71; PULSE 65; RESP 18; TEMP 97.7; O2SAT 96
--- NOTE | 2024-10-11 09:47 | Discharge Summary ---
Date of Service October 11, 2024 Admission HPI Per Admitting Provider 44-year-old female with past medical history of cecal volvulus status post right hemicolectomy, allergies to mold, house dust mites, pollen, cat dander and cats and not on any medication at home presented to the ED originally on 10/07/2024 after being exposed to With facial swelling with neck swelling and was given IV Decadron, IV Benadryl and IV Pepcid with improvement and was sent home. Patient states that her symptoms recurred at home and then she went to follow-up with her primary care provider yesterday who diagnosed her with sinus infection and prescribed her Augmentin 875 mg p.o. twice daily, stop steroids and referred her to an animal science professor and ENT specialist. Patient states that in spite of taking Augmentin she felt her neck glands were getting more swollen and hence decided to come to the ED. Patient had labs done in the ED which were remarkable for potassium of 3.4 with normal CRP, normal white count She had an EKG done which showed sinus rhythm at 62 bpm with no ischemic changes She had a viral panel sent which was positive for influenza A, group A strep was negative She had a CT neck with contrast showing findings suggestive of tonsillitis without peritonsillar abscess, mild edema/inflammation of the parotid and submandibular glands and mild cervical adenopathy which appear to be reactive due to tonsillitis with chronic maxillary sinusitis. Findings could be reactive due to tonsillitis or also can be seen in setting of viral infection and Sjogren syndrome. CT of the head showed no acute intracranial findings with opacified right sphenoid sinus which likely contains secretions, left maxillary sinus mucous retention cyst and mild ethmoid sinus mucosal thickening. Patient was in Pepcid 20 mg IV, Solu-Medrol 125 mg IV, Benadryl 25 mg IV and dexamethasone 10 mg IV along with ceftriaxone 2 g IV in the ED. Patient feels that her swelling in her neck got worse after IV ceftriaxone. She denies any fever, chills, nausea, vomiting, diarrhea, abdominal pain, chest pain, shortness of breath, difficulty swallowing. She is able to eat and drink. She feels her neck glands are swollen which are impacting her throat. She is also noticed her face is more swollen than usual with swelling around her eyes. She does report decreased appetite over the past 3 days with poor oral intake. She denies any sick contacts. She denies any nosebleeds, hemoptysis, cough, hematochezia or bright red blood per rectum. Patient states she is not on any home medications. She has been prescribed EpiPen but it is too expensive and expires very quickly and hence does not have any EpiPen available. She also has taken Tylenol and ibuprofen in the past without any issues Social history: Patient lives at home with her boyfriend August who is at the bedside. She is independent of ADLs. She is employed. She denies tobacco use and drinks alcohol socially only. She denies cannabis use and IV drug use Admission Exam (Per Admitting) Constitutional The patient is awake, alert and oriented 3, well developed and well nourished, normocephalic and atraumatic, lying in bed and in no acute distress. HEENT--PERRL, EOMI, mucous membranes and oropharynx mildly dry Neck--supple. No JVD. No bruits. Thyroid normal, trachea midline, no adenopathy. Heart--normal S1 and S2. No murmurs, rubs or gallops. Lungs--clear bilaterally, no respiratory distress, no accessory muscle use. Abdomen--normal bowel sounds and soft. Extremities--no cyanosis or clubbing. No edema. Dermatologic--normal skin turgor, normal color, no abnormal lymph nodes, no rash. Neurologic--cranial nerves II through XII grossly intact. Rheumatologic--normal range of motion. Psychiatric--normal affect. Discharge Data Consultations 10/09/24 15:33 ED Decision to Admit Stat Hospital Course (1) Influenza A: (2) Acute tonsillitis: (3) Lymphadenopathy: (4) Allergic reaction: (5) Lorraine Dobson infection: Plan 44-year-old female with past medical history of cecal volvulus status post right hemicolectomy, allergies to mold, house dust mites, pollen, cat dander and cats and not on any medication at home presented to the ED originally on 10/07/2024 after being exposed to With facial swelling with neck swelling and was given IV Decadron, IV Benadryl and IV Pepcid with improvement and was sent home. Patient states that her symptoms recurred at home and then she went to follow-up with her primary care provider yesterday who diagnosed her with sinus infection and prescribed her Augmentin 875 mg p.o. twice daily, stop steroids and referred her to an animal science professor and ENT specialist. Patient states that in spite of taking Augmentin she felt her neck glands were getting more swollen and hence decided to come to the ED. #Influenza A infection #EBV #Bilateral tonsillitis #Bilateral cervical lymphadenopathy #Bilateral enlargement of parotid and submandibular glands #Suspected allergic reaction Vital signs are stable, patient is saturating well on room air and not in any respiratory distress Still having difficulty and pain swallowing Start patient on Tamiflu 75 mg p.o. twice daily, Solumedrol 40mg Q8hrs to help with swelling and inflammation Transition to Po prednisone for 3 more days Check Monospot Continue Augmentin Tylenol as needed plus ibuprofen as needed Cetirizine 10 mg p.o. daily Patient has already been referred to ENT and animal science professor as outpatient #Hypokalemia Likely from poor oral intake Potassium replacement p.o. 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
[2024-10-13 14:12] LABS: Anti-SS-A <1.0 NEG AI (<1.0 NEG); Anti-SS-B <1.0 NEG AI (<1.0 NEG)
== END 2024-10-11 10:53 | disposition home or self-care (01) | DRG 195 ==
LOC: SUATTDRO → 3W 09:09 → ED 09:09 → SUATTDRO 16:52 → 3W 20:40